=== PATIENT | female | born 1995 | race African-American/Black ===

== ENCOUNTER 2023-01-05 13:19 | Emergency (ER) | payer OTHER ==
[~2023-01-05] VITALS: Ht 160 cm; Wt 73.5 kg
[2023-01-05] MEDS ORDERED: ECOTRIN81 MG PO (13:42)
[2023-01-05] MEDS ORDERED: PRENA1 TRUE CO1 EACH PO (13:43)
[2023-01-05 14:25] LABS: HEMATOCRIT 38.3 % (36.0-45.00); HEMOGLOBIN 13.1 g/dL (12.0-15.00); MEAN CELL VOLUME 88.8 fL (80.00-100.00); MEAN CORPUSCULAR HEMOGLOBIN 30.4 pg (27.00-32.0); MEAN CORPUSCULAR HGB CONC 34.2 g/dl (32.0-36.0); PLATELET COUNT 222 K/uL (150-450); RED BLOOD COUNT 4.31 M/uL (4.00-6.00); RED CELL DISTRIBUTION WIDTH 15.3 % (11.5-14.5)
[2023-01-05] MEDS ORDERED: KETO10TA2 PO (16:56)
== END 2023-01-05 17:03 | disposition home or self-care (01) ==
LOC: ER 13:20
PROVIDERS: Emergency Medicine
DX: O03.9 Complete or unspecified spontaneous abortion without complication (principal)

== ENCOUNTER 2023-11-14 12:30 | Inpatient (IN) | payer OTHER ==
[~2023-11-14] VITALS: Ht 160 cm; Wt 78.5 kg
[~2023-11-14 12:30] MED LIST: ECOTRIN81 MG PO; KETO10TA2 PO; PRENA1 TRUE CO1 EACH PO
[2023-11-14 14:15] LABS: URINE APPEARANCE Turbid; URINE BILIRRUBIN Negative (NEGATIVE); URINE BLOOD Negative; URINE COLOR Dark Yellow; URINE GLUCOSE Negative (NEGATIVE); URINE KETONE Trace (NEGATIVE); URINE LEUKOCYTE Large; URINE NITRATE Negative; URINE PROTEIN 30 (NEGATIVE)
[2023-11-14 14:18] LABS: URINE EPITHELIAL CELLS 107.1 uL (0.0-38.8); URINE RBC 2267.1 uL (0.0-20.8); URINE WBC 648.2 uL (0.0-23.2)
[2023-11-14 14:19] LABS: HEMATOCRIT 37.1 % (36.0-45.00); HEMOGLOBIN 12.4 g/dL (12.0-15.00); MEAN CELL VOLUME 92.5 fL (80.00-100.00); MEAN CORPUSCULAR HGB CONC 33.5 g/dl (32.0-36.0); PLATELET COUNT 187 K/uL (150-450); RED BLOOD COUNT 4.01 M/uL (4.00-6.00); RED CELL DISTRIBUTION WIDTH 15.8 % (11.5-14.5)
[2023-11-14 14:40] LABS: INR 0.98; PARTIAL THROMBOPLASTIN TIME 30.3 SECONDS (22.0-34.0); PROTHROMBIN TIME 10.7 SECONDS (9.0-11.5)
[2023-11-14 14:48] LABS: URINE BACTERIA > 9821.5 uL (0.0-1933); URINE CAST 0.61 uL (0.0-1.40); URINE YEAST FEW /hpf
[2023-11-14 17:54] LABS: RH POSITIVE
[2023-11-15 13:09] VITALS: BP 117/73
[2023-11-15] MEDS ORDERED: ERYTHROMYCIN BASE OPHT 1GM EACH TUBE OP ONE (16:30)
[2023-11-15] MEDS ORDERED: OXYTOCIN 10 UNITS/ML VIAL IV ONE (16:30)
[2023-11-15] MEDS ORDERED: CEFAZOLIN SODIUM 1,000 MG VIAL IV ONE (16:30)
[2023-11-15] MEDS ORDERED: KETOROLAC TROMETHAMINE 60 MG VIAL IM STA (17:53)
[2023-11-15] MEDS ORDERED: MEPERIDINE HCL/PF 50 MG/ML VIAL IM PRN (18:00)
[2023-11-15] MEDS ORDERED: OXYTOCIN 1,000 ML IV SCH (18:00)
[2023-11-15] MEDS ORDERED: RINGERS SOLUTION,LACTATED 1,000 ML IV SCH (18:00)
[2023-11-15] MEDS ORDERED: PROMETHAZINE HCL 25 MG/ML AMPUL IM PRN (18:00)
[2023-11-15] MEDS ORDERED: CHLORHEXIDINE GLUCONATE 120 ML BOTTLE TOP SCH (18:00)
[2023-11-15] MEDS ORDERED: METHYLERGONOVINE MALEATE 0.2 MG/ML AMPUL IV ONE (18:45)
[2023-11-15] MEDS ORDERED: MORPHINE SULFATE 4 MG/ML VIAL IV ONE (19:55)
[2023-11-15] MEDS ORDERED: KETOROLAC TROMETHAMINE 60 MG VIAL IM ONE (20:20)
[2023-11-15 21:38] VITALS: BP 117/68
[2023-11-15 23:46] LABS: HEMATOCRIT 29.6 % (36.0-45.00); MEAN CELL VOLUME 91.3 fL (80.00-100.00); MEAN CORPUSCULAR HEMOGLOBIN 30.5 pg (27.00-32.0); MEAN CORPUSCULAR HGB CONC 33.4 g/dl (32.0-36.0); PLATELET COUNT 147 K/uL (150-450); RED BLOOD COUNT 3.24 M/uL (4.00-6.00); RED CELL DISTRIBUTION WIDTH 15.9 % (11.5-14.5)
[2023-11-15 23:48] LABS: HEMOGLOBIN 9.9 g/dL (12.0-15.00)
[2023-11-16 01:45] VITALS: BP 108/62
[2023-11-16 08:19] VITALS: BP 117/74
[2023-11-16] MEDS ORDERED: OxyCODONE HCL/APAP UD (PERCOCET) PO PRN (09:00)
[2023-11-16 16:09] VITALS: BP 101/64
[2023-11-17 00:04] VITALS: BP 119/74
[2023-11-17 08:12] VITALS: BP 123/73
[2023-11-17 16:00] VITALS: BP 107/67
[2023-11-18] VITALS: BP 109/67
[2023-11-18 08:44] VITALS: BP 132/64
[2023-11-18] MEDS ORDERED: IBUPROFEN800 MG PO (09:25)
== END 2023-11-18 11:50 | disposition home or self-care (01) | DRG 788 ==
LOC: OB/GYN 11-15 12:30 → O/R 11-15 16:41 → OB/GYN 11-15 19:53
PROVIDERS: ADMIT Obstetrics & Gynecology; ATTEND Obstetrics & Gynecology
PROC: 4A1HXCZ Monitoring of Products of Conception, Cardiac Rate, External Approach (ICD-10-PCS; 2023-11-15)
PROC: 10D00Z1 Extraction of Products of Conception, Low, Open Approach (ICD-10-PCS; principal; 2023-11-15 15:00)
DX: O32.1XX0 Maternal care for breech presentation, not applicable or unspecified (principal); Z3A.40 40 weeks gestation of pregnancy; Z37.0 Single live birth; Z20.822 Contact with and (suspected) exposure to COVID-19